=== PATIENT | female | born 1950 | race Asian ===

== ENCOUNTER 2016-07-27 07:44 | Outpatient (CLI) | payer OTHER, BC ==
[~2016-07-27 07:44] MED LIST: ATENOLOL100 MG PO; BENA5CAP PO; CEFD300C2 PO; FLONASE NAS; HYDR25TA60 PO; IBUP800T30 PO; LEVAQUIN500 MG OR; LEVO0.0218 PO; LISI20TA24 PO; MEDROL DOSEPAK4 MG OR; MOBIC7.5 M1 OR; OMEP20CA PO
[2016-07-27 08:47] LABS: PLATELET COUNT 208 K/uL (152-353)
== END 2016-07-27 08:44 | disposition home or self-care (01) ==
LOC: LABW 07:44
PROVIDERS: Internal Medicine Critical Care Medicine
DX: R06.02 Shortness of breath (principal); L28.2 Other prurigo
CPT/HCPCS: 36415; 82785; 83516; 85027; 85651; 86039; 86255

== ENCOUNTER 2016-08-08 13:31 | Outpatient (CLI) | payer OTHER, BC ==
[2016-08-08 13:59] LABS: POTASSIUM 4.7 mmol/L (3.6-5.2); SODIUM 135 mmol/L (136-145)
[2016-08-08 14:23] LABS: PLATELET COUNT 223 K/uL (152-353)
== END 2016-08-09 02:02 | disposition home or self-care (01) ==
LOC: LAB 13:31
PROVIDERS: Nurse Practitioner Family
DX: E11.9 Type 2 diabetes mellitus without complications (principal); E78.4 Other hyperlipidemia; I10 Essential (primary) hypertension; Z79.899 Other long term (current) drug therapy; Z51.81 Encounter for therapeutic drug level monitoring
CPT/HCPCS: 80053; 80061; 83036; 84439; 84443; 85027

== ENCOUNTER 2019-04-29 11:29 | Outpatient (CLI) | payer OTHER, BC | END 2019-04-29 21:09 | disposition home or self-care (01) | LOC: US 11:29 | DX: L03.818 Cellulitis of other sites (principal); R60.0 Localized edema; I10 Essential (primary) hypertension; E11.65 Type 2 diabetes mellitus with hyperglycemia; E55.9 Vitamin D deficiency, unspecified; K58.9 Irritable bowel syndrome, unspecified; D64.89 Other specified anemias; R89.8 Other abnormal findings in specimens from other organs, systems and tissues ==

== ENCOUNTER 2019-09-17 11:24 | Outpatient (CLI) | payer OTHER, BC | END 2019-09-17 19:13 | disposition home or self-care (01) | LOC: LAB 11:24 | DX: S81.809A Unspecified open wound, unspecified lower leg, initial encounter (principal) | CPT/HCPCS: 87070; 87205 ==

== ENCOUNTER 2019-11-11 09:38 | Emergency (ER) | payer OTHER, BC ==
[~2019-11-11] VITALS: Ht 170.2 cm; Wt 117.9 kg
[2019-11-11 09:38] VITALS: TEMP 97.6
[2019-11-11 10:09] LABS: PLATELET COUNT 252 K/uL (152-353)
[2019-11-11 10:10] LABS: POTASSIUM 4.4 mmol/L (3.6-5.2); SODIUM 138 mmol/L (136-145)
[2019-11-11] MEDS ORDERED: SPIRONOLACT25 MG PO (10:32)
[2019-11-11] MEDS ORDERED: ADULT ASPIRIN R81 MG PO (10:34)
[2019-11-11] MEDS ORDERED: TRAMADOL HYDROC50 MG PO (10:34)
[2019-11-11 10:59] VITALS: BP 181/78
== END 2019-11-11 11:12 | disposition home or self-care (01) ==
LOC: ED 09:38
PROVIDERS: Family Medicine
DX: I48.92 Unspecified atrial flutter (principal); I10 Essential (primary) hypertension
CPT/HCPCS: 80053; 82550; 82553; 84484; 85027; 93005; 99284

== ENCOUNTER 2019-11-11 11:08 | Outpatient (CLI) | payer OTHER, BC ==
[~2019-11-11 11:08] MED LIST changes: +ADULT ASPIRIN R81 MG PO; +SPIRONOLACT25 MG PO; +TRAMADOL HYDROC50 MG PO
[2019-11-11 12:04] LABS: PLATELET COUNT 257 K/uL (152-353)
[2019-11-11 13:12] LABS: POTASSIUM 4.4 mmol/L (3.6-5.2)
== END 2019-11-11 19:53 | disposition home or self-care (01) ==
LOC: LAB 11:08
PROVIDERS: Nurse Practitioner Family
DX: I10 Essential (primary) hypertension (principal); D64.89 Other specified anemias; E11.9 Type 2 diabetes mellitus without complications; K58.8 Other irritable bowel syndrome; I89.0 Lymphedema, not elsewhere classified; I83.019 Varicose veins of right lower extremity with ulcer of unspecified site; E55.9 Vitamin D deficiency, unspecified; R00.1 Bradycardia, unspecified
CPT/HCPCS: 80053; 80061; 83036; 84439; 84443; 84481; 85027

== ENCOUNTER 2021-02-17 18:08 | Emergency (ER) | payer BC ==
[~2021-02-17] VITALS: Ht 170.2 cm; Wt 105.7 kg
[2021-02-17 18:08] VITALS: BP 178/75; TEMP 99.3
[2021-02-17 20:07] LABS: PLATELET COUNT 159 K/uL (152-353)
[2021-02-17 20:19] LABS: POTASSIUM 4.4 mmol/L (3.6-5.2)
--- NOTE | 2021-02-22 08:44 | NUR ---
0843- PATIENT NOTIFIED OF COVID TEST RESULTS. INSTRUCTED PATIENT TO NOTIFY HER PCP FOR FURTHER INSTRUCTIONS. INSTRUCTED PATIENT REGARDING QUARANTINE PROCEDURES. PT VERBALIZES UNDERSTANDING. NO QUESTIONS AT THIS TIME.
== END 2021-02-17 20:57 | disposition home or self-care (01) ==
LOC: ED 18:20
PROVIDERS: Family Medicine
DX: U07.1 COVID-19 (principal); J06.9 Acute upper respiratory infection, unspecified
CPT/HCPCS: 36415; 80053; 85027; 87635; 87651; 99283; U0003

== ENCOUNTER 2021-02-22 16:52 | Emergency (ER) | payer BC ==
[~2021-02-22] VITALS: Ht 170.2 cm; Wt 105.7 kg
[2021-02-22 16:52] VITALS: TEMP 99.8
[2021-02-22 17:34] LABS: PLATELET COUNT 160 K/uL (152-353)
[2021-02-22 17:43] LABS: SODIUM 134 mmol/L (136-145)
[2021-02-22 22:12] VITALS: BP 158/62
== END 2021-02-22 22:12 | disposition home or self-care (01) ==
LOC: ED 16:57
PROVIDERS: Emergency Medicine Emergency Medical Services
DX: U07.1 COVID-19 (principal)
CPT/HCPCS: 80053; 81000; 84484; 85027; 93005; 96360; 96375; 99284; J1885

== ENCOUNTER 2021-02-26 16:34 | Emergency (ER) | payer BC ==
[~2021-02-26] VITALS: Ht 170.2 cm; Wt 105.7 kg
[2021-02-26 17:33] LABS: PLATELET COUNT 286 K/uL (152-353)
[2021-02-26 18:09] LABS: POTASSIUM 4.1 mmol/L (3.6-5.2); SODIUM 136 mmol/L (136-145)
[2021-02-26 19:40] VITALS: BP 156/94; TEMP 97.9
== END 2021-02-26 19:40 | disposition home or self-care (01) ==
LOC: ED 16:34
PROVIDERS: Emergency Medicine Emergency Medical Services
DX: U07.1 COVID-19 (principal); J12.82 Pneumonia due to coronavirus disease 2019
CPT/HCPCS: 36415; 80048; 81002; 84484; 85027; 93005; 96360; 96365; 99284; J0696

== ENCOUNTER 2021-06-16 08:42 | Outpatient (CLI) | payer BC ==
[2021-06-16 09:09] LABS: PLATELET COUNT 214 K/uL (152-353)
== END 2021-06-16 19:56 | disposition home or self-care (01) ==
LOC: LABW 08:42
PROVIDERS: ATTEND Nurse Practitioner Family
DX: E11.9 Type 2 diabetes mellitus without complications (principal); Z12.31 Encounter for screening mammogram for malignant neoplasm of breast; I10 Essential (primary) hypertension; E55.9 Vitamin D deficiency, unspecified
CPT/HCPCS: 36415; 80053; 80061; 81000; 82043; 82306; 82570; 83036; 85027

== ENCOUNTER 2021-08-20 09:22 | Outpatient (CLI) | payer BC | END 2021-08-20 21:36 | disposition home or self-care (01) | LOC: RAD 09:22 | PROVIDERS: ATTEND Nurse Practitioner Family | DX: Z79.899 Other long term (current) drug therapy (principal); I49.8 Other specified cardiac arrhythmias; I10 Essential (primary) hypertension; E11.65 Type 2 diabetes mellitus with hyperglycemia | CPT/HCPCS: 93005 ==

== ENCOUNTER 2023-01-26 09:55 | Outpatient (CLI) | payer BC ==
[2023-01-26 12:14] LABS: PLATELET COUNT 190 K/uL (152-353)
[2023-01-26 12:38] LABS: POTASSIUM 4.4 mmol/L (3.6-5.2)
== END 2023-01-26 20:03 | disposition home or self-care (01) ==
LOC: LAB 09:55
PROVIDERS: ATTEND Nurse Practitioner Family
DX: R60.0 Localized edema (principal); I10 Essential (primary) hypertension; E78.49 Other hyperlipidemia; R00.1 Bradycardia, unspecified; E55.9 Vitamin D deficiency, unspecified; Z79.899 Other long term (current) drug therapy
CPT/HCPCS: 36415; 80053; 80061; 82306; 82550; 82553; 83036; 83735; 83880; 84439; 84443; 85027

== ENCOUNTER 2023-01-27 08:40 | Outpatient (CLI) | payer BC | END 2023-01-27 20:24 | disposition home or self-care (01) | LOC: LAB 08:40 | PROVIDERS: ATTEND Nurse Practitioner Family | DX: R60.0 Localized edema (principal); I10 Essential (primary) hypertension; E78.49 Other hyperlipidemia; R00.1 Bradycardia, unspecified | CPT/HCPCS: 84484 ==

== ENCOUNTER 2023-02-09 09:12 | Outpatient (CLI) | payer BC ==
[2023-02-09 10:10] LABS: PLATELET COUNT 185 K/uL (152-353)
[2023-02-09 10:36] LABS: POTASSIUM 4.6 mmol/L (3.6-5.2)
== END 2023-02-09 20:43 | disposition home or self-care (01) ==
LOC: LAB 09:12
PROVIDERS: ATTEND Nurse Practitioner Family
DX: I10 Essential (primary) hypertension (principal); E78.49 Other hyperlipidemia; R00.1 Bradycardia, unspecified; R60.0 Localized edema; Z79.899 Other long term (current) drug therapy; E55.9 Vitamin D deficiency, unspecified
CPT/HCPCS: 80053; 80061; 82306; 82550; 83036; 83735; 83880; 84439; 84443; 85027

== ENCOUNTER 2023-02-17 12:36 | Outpatient (CLI) | payer BC | END 2023-02-17 19:10 | disposition home or self-care (01) | LOC: LAB 12:36 | PROVIDERS: ATTEND Nurse Practitioner Family | DX: I10 Essential (primary) hypertension (principal); R00.1 Bradycardia, unspecified; R60.0 Localized edema | CPT/HCPCS: 84484 ==